=== PATIENT | male | born 1940 | race Caucasian/White ===

== ENCOUNTER 2016-09-23 17:07 | Inpatient (IN) | payer OTHER ==
[~2016-09-23] VITALS: Ht 170.1 cm; Wt 73.1 kg
--- NOTE | ~2016-09-23 | CON ---
[place], [place] REPORT OF CONSULTATION NAME: DARIEL GOOD UNIT #: [id number] ROOM: 405 DOCTOR: AUDRA PERALTA MD BIRTHDATE: [birth year] DOS: 09/24/2016 CARDIOLOGY CONSULTATION CONSULTING PHYSICIAN: Dr. Thong Schroeder. PRIMARY CARE PHYSICIAN: Dr. Moiz Dowd. REASON FOR CONSULT: Chest pain. CLINICAL HISTORY: The patient is a 76-year-old gentleman with a history of hypertension, diabetes, dyslipidemia, coronary artery disease, presented to the Emergency Room with chest pain. He developed this chest pain about 2-3 weeks ago, intermittent and gradually progressing, coming more frequently. He described this pain in the midsternal area in the upper anterior wall more towards the right side of the chest wall. It is dull and nonradiating pain, mild in severity, no associated nausea, diaphoresis, or dizziness. This pain lasted for several minutes and relieves on its own and easily comes with exertion and relieved with rest. No nausea, vomiting, diarrhea. No headache, no dizziness, no syncope. No orthopnea or PND. No palpitations. No hematuria or dysuria. He had 2 cardiac caths in the past, the last one was about 10 years ago, which showed "small blockages." REVIEW OF SYSTEMS: Review of the 8 systems negative except as mentioned above. PAST MEDICAL HISTORY: 1. Hypertension. 2. Diabetes type 2, on insulin. 3. "Coronary artery disease" details unknown. 4. Dyslipidemia. PAST SURGICAL HISTORY: 1. History of eye surgery. 2. Cholecystectomy. 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 SOCIAL HISTORY: The patient drinks occasional alcohol, does not use drugs. Quit smoking 20 years ago. FAMILY HISTORY: Father had coronary artery disease at the age of 74. Mother had coronary artery disease at the age of 52. OCCUPATION: The patient is currently retired. He used to work for an [employer]. ALLERGIES: The patient has no known drug allergies. HOME MEDICATIONS: Reviewed. PHYSICAL EXAMINATION: VITAL SIGNS: Blood pressure 140/74, pulse 76, respiratory rate of 16. [place], [place] REPORT OF CONSULTATION NAME: DARIEL GOOD UNIT #: [id number] ROOM: 405 DOCTOR: AUDRA PERALTA MDDATE: [birth year] GENERAL: Alert, comfortable, in no acute distress. HEENT: Pupils are round and equal. No jaundice. Left eye is a prosthetic eye. NECK: Supple, no distended neck veins, no carotid bruit. Tongue was moist and pharynx was clear. CHEST: Symmetrical, nontender. LUNGS: Few scattered rhonchi, no S3. ABDOMEN: Benign, nontender. Bowel sounds normal. No palpable masses. EXTREMITIES: Showed no edema. Distal pulses are palpable. SKIN: Warm and dry. NEUROLOGIC: The patient is alert, oriented. No focal neurologic deficit. RECTAL: Deferred. GENITOURINARY: Deferred. REVIEW OF THE DIAGNOSTIC TESTS: EKG shows sinus rhythm with lateral ST-T changes. Cardiac enzymes are unremarkable. CBC, chemistry reviewed. IMPRESSION: 1. Intermittent chest pains, possible angina. 2. Coronary artery disease, second cardiac cath was 10 years ago, details unknown "small blockages." 3. Hypertension. 4. Diabetes type 2. 5. Dyslipidemia. RECOMMENDATIONS: 1. Continue current medications. 2. Scheduled for exercise nuclear stress test due to his symptoms and multiple coronary disease risk factors. 3. Continue aspirin, beta blockers and statins. 4. Further recommendations based on his stress test and his symptoms. Thank you, Dr. Schroeder, for asking us to evaluate this patient and we will follow the case along with you. AUDRA PERALTA MD CM:CONSTR:REPORT OF CONSULTATION 2203 09/25/16 0434 interface
--- NOTE | ~2016-09-23 | ST ---
[place], [place] EXERCISE STRESS TEST REPORT [id number] UNIT #: [id number] ROOM: 405 DOCTOR: KATHRYN HINES,AUDRA BIRTHDATE: [birth year] DOS: 09/24/2016 EXERCISE NUCLEAR STRESS TEST REFERRING PHYSICIAN: Dr. Thong Schroeder and Dr. Moiz Dowd. REASON FOR TEST: Evaluation of chest pain. PHYSICAL EXAMINATION: NECK: Supple. LUNGS: Clear anteriorly. HEART: Regular rhythm. PROTOCOL: Mauricio protocol. DESCRIPTION: Total stress time 7 minutes and 30 seconds, maximum heart rate of 131, which is 92% of target heart rate, total METs 8.8 METs. Jaffe treadmill score +7. Peak blood pressure 150/74, adequate response. SYMPTOMS: The patient developed chest pain across the chest wall, which is resolved in the recovery phase without any intervention. His resting EKG showed sinus rhythm with nonspecific ST-T changes. Stress EKG showed [address] depression in lead V2-V5 as well as lead 1 and aVL and also frequent ventricular ectopy. His EKG changes partially resolved after 1 sublingual nitroglycerin tablet in the recovery phase. POST-STRESS COMPLICATIONS: None. CONCLUSION: Clinically, the patient developed chest pain. EKG abnormal with [address] depression in lead V2-V5 as well as lead 1 and aVL, partially resolved in the recovery phase after 1 sublingual nitroglycerin tablet. AUDRA PERALTA MD CM:STRESS:EXERCISE STRESS TEST REPORT [id number] AUDRA PERALTA MD
[~2016-09-23 17:07] MED LIST: AMLODIPINE10 MG; ASCRIPTIN ENTER81 MG PO; HYZAAR 50/12.5M1 TAB PO; IMDUR60 MG; SIMVASTATIN20 MG
[2016-09-23 17:42] VITALS: BP 149/79
[2016-09-23 17:44] LABS: BASO % 0.7 % (0.0-1.0); EOS # 0.2 10*3/uL (0.0-0.4); EOS % 3.8 % (1.0-4.0); HEMATOCRIT 39.6 % (42.0-52.0); HEMOGLOBIN 13.3 g/dl (14.0-18.0); LYMPH # 1.3 10*3/uL (1.3-4.4); LYMPH % 20.9 % (27.0-41.0); MEAN CELL VOLUME 84.3 fl (80.0-94.0); MEAN CORPUSCULAR HGB 28.3 pg (27.0-31.0); MEAN CORPUSCULAR HGB CONC 33.6 g/dl (33.0-37.0); MEAN PLATELET VOLUME 10.7 fl (9.6-12.3); MONO # 0.5 10*3/uL (0.1-1.0); MONO % 8.9 % (3.0-9.0); NEUT % 65.4 % (47.0-73.0); PLATELET COUNT AUTOMATED 191 10*3/uL (130-400); RED CELL DISTRI WIDTH 13.2 % (0-14.5); WHITE BLOOD COUNT 6.1 10*3/uL (4.8-10.8)
[2016-09-23 17:54] LABS: INTERNATIONAL NORM RATIO 0.9 (2.0-3.5)
[2016-09-23 18:03] LABS: ALBUMIN 3.7 gm/dl (3.1-4.5); ALKALINE PHOSPHATASE 85 U/L (45-117); BILIRUBIN, TOTAL 0.3 mg/dl (0.2-1.0); BUN 18 mg/dl (7-24); CARBON DIOXIDE 27 mmol/L (21-32); CHLORIDE 108 mmol/L (98-107); CKMB 2.6 ng/ml (0.5-3.6); CPK 97 U/L (39-308); EST GLOM FILT AFRICAN AMERICAN > 60 ml/min; GLUCOSE 117 mg/dL (65-99); LDH 208 U/L (87-241); MAGNESIUM 2.2 mg/dL (1.5-2.1); POTASSIUM 4.3 mmol/L (3.5-5.1); SGOT/AST 20 IU/L (3-35); SGPT/ALT 24 U/L (12-78); SODIUM 143 mmol/L (136-145); TOTAL PROTEIN 7.5 gm/dL (6.4-8.2)
[2016-09-23 18:05] LABS: TROPONIN I 0.149 ng/ml (<0.5)
[2016-09-23 20:00] VITALS: BP 142/76
[2016-09-23 21:10] VITALS: BP 160/72
[2016-09-23 21:23] VITALS: BP 160/72
[2016-09-24] VITALS: BP 151/76
[2016-09-24 01:11] LABS: CKMB 2.5 ng/ml (0.5-3.6); TROPONIN I 0.245 ng/ml (<0.5)
[2016-09-24 04:00] VITALS: BP 135/60
[2016-09-24 06:24] LABS: BASO # 0.1 10*3/uL (0.0-0.1); BASO % 0.8 % (0.0-1.0); EOS # 0.4 10*3/uL (0.0-0.4); EOS % 5.8 % (1.0-4.0); HEMATOCRIT 38.6 % (42.0-52.0); HEMOGLOBIN 12.6 g/dl (14.0-18.0); LYMPH # 1.6 10*3/uL (1.3-4.4); LYMPH % 25.2 % (27.0-41.0); MEAN CELL VOLUME 85.4 fl (80.0-94.0); MEAN CORPUSCULAR HGB 27.9 pg (27.0-31.0); MEAN CORPUSCULAR HGB CONC 32.6 g/dl (33.0-37.0); MEAN PLATELET VOLUME 10.9 fl (9.6-12.3); MONO # 0.6 10*3/uL (0.1-1.0); MONO % 9.1 % (3.0-9.0); NEUT # 3.7 10*3/uL (2.3-7.9); NEUT % 58.8 % (47.0-73.0); PLATELET COUNT AUTOMATED 180 10*3/uL (130-400); RED BLOOD COUNT 4.52 10*6/uL (4.50-5.90); RED CELL DISTRI WIDTH 13.3 % (0-14.5); WHITE BLOOD COUNT 6.2 10*3/uL (4.8-10.8)
[2016-09-24 06:36] LABS: CKMB 2.7 ng/ml (0.5-3.6); TROPONIN I 0.267 ng/ml (<0.5)
[2016-09-24 06:58] LABS: HEMOGLOBIN A1c 6.4 % (4.8-5.6)
[2016-09-24 07:02] LABS: ALBUMIN 3.5 gm/dl (3.1-4.5); ALKALINE PHOSPHATASE 80 U/L (45-117); BILIRUBIN, TOTAL 0.5 mg/dl (0.2-1.0); BUN 16 mg/dl (7-24); CARBON DIOXIDE 26 mmol/L (21-32); CHLORIDE 108 mmol/L (98-107); CHOLESTEROL 180 mg/dL (<200); EST GLOM FILT AFRICAN AMERICAN > 60 ml/min; GLUCOSE 101 mg/dL (65-99); HDL CHOLESTEROL 48 mg/dl (40-60); LDL CHOLESTEROL 99 mg/dL (9-159); MAGNESIUM 2.2 mg/dL (1.5-2.1); PHOSPHOROUS 2.5 mg/dL (2.5-4.9); POTASSIUM 3.7 mmol/L (3.5-5.1); SGOT/AST 16 IU/L (3-35); SGPT/ALT 22 U/L (12-78); SODIUM 144 mmol/L (136-145); TOTAL PROTEIN 6.8 gm/dL (6.4-8.2); TRIGLYCERIDES 166 mg/dl (<150); VLDL CHOLESTEROL 33 mg/dL (6-40)
[2016-09-24 07:20] LABS: PROTHROMBIN TIME 10.4 SECONDS (9.0-12.4)
[2016-09-24 07:36] LABS: VITAMIN D, 25-HYDROXY 38.2 ng/mL (30-100)
[2016-09-24 07:37] LABS: FOLIC ACID 21.01 ng/mL (>5.38)
[2016-09-24 08:00] VITALS: BP 180/90
[2016-09-24 15:04] LABS: TROPONIN I 0.285 ng/ml (<0.5)
[2016-09-24 16:00] VITALS: BP 120/58
[2016-09-24 20:00] VITALS: BP 118/69
[2016-09-25] VITALS: BP 125/71
[2016-09-25 08:00] VITALS: BP 122/62
== END 2016-09-25 08:24 | disposition other institution (70) | DRG 311 ==
LOC: ED 17:07 → 4E 18:26 → EDHOLD 18:26 → 4E 19:17
PROVIDERS: Hospitalist; Internal Medicine
DX: I24.9 Acute ischemic heart disease, unspecified (principal); E44.0 Moderate protein-calorie malnutrition; E11.65 Type 2 diabetes mellitus with hyperglycemia; E83.41 Hypermagnesemia; I10 Essential (primary) hypertension; E78.2 Mixed hyperlipidemia; D64.9 Anemia, unspecified; I25.10 Atherosclerotic heart disease of native coronary artery without angina pectoris; Z68.25 Body mass index [BMI] 25.0-25.9, adult; Z87.891 Personal history of nicotine dependence; Z79.4 Long term (current) use of insulin; Z90.49 Acquired absence of other specified parts of digestive tract; Z98.890 Other specified postprocedural states; Z82.49 Family history of ischemic heart disease and other diseases of the circulatory system

== ENCOUNTER → 2017-04-08 | Outpatient (CLI) | payer OTHER ==
[2017-04-08 10:53] LABS: BASO % 0.6 % (0.0-1.0); EOS # 0.3 10*3/uL (0.0-0.4); EOS % 3.9 % (1.0-4.0); HEMATOCRIT 41.1 % (42.0-52.0); HEMOGLOBIN 13.4 g/dl (14.0-18.0); LYMPH # 1.2 10*3/uL (1.3-4.4); LYMPH % 18.3 % (27.0-41.0); MEAN CELL VOLUME 86.7 fl (80.0-94.0); MEAN CORPUSCULAR HGB 28.3 pg (27.0-31.0); MEAN CORPUSCULAR HGB CONC 32.6 g/dl (33.0-37.0); MEAN PLATELET VOLUME 11.2 fl (9.6-12.3); MONO # 0.5 10*3/uL (0.1-1.0); MONO % 7.6 % (3.0-9.0); NEUT # 4.5 10*3/uL (2.3-7.9); NEUT % 69.3 % (47.0-73.0); PLATELET COUNT AUTOMATED 188 10*3/uL (130-400); RED BLOOD COUNT 4.74 10*6/uL (4.50-5.90); RED CELL DISTRI WIDTH 13.8 % (0-14.5); WHITE BLOOD COUNT 6.4 10*3/uL (4.8-10.8)
[2017-04-08 11:28] LABS: ALBUMIN 3.9 gm/dl (3.1-4.5); BUN 22 mg/dl (7-24); CARBON DIOXIDE 30 mmol/L (21-32); CHLORIDE 107 mmol/L (98-107); GLUCOSE 104 mg/dL (65-99); POTASSIUM 4.4 mmol/L (3.5-5.1); SODIUM 141 mmol/L (136-145)
[2017-04-08 11:37] LABS: ALKALINE PHOSPHATASE 85 U/L (45-117); BILIRUBIN, TOTAL 0.3 mg/dl (0.2-1.0); CHOLESTEROL 152 mg/dL (<200); EST GLOM FILT AFRICAN AMERICAN > 60 ml/min; FREE THYROXIN INDEX/T7 3.6 (1.4-4.7); HDL CHOLESTEROL 51 mg/dl (40-60); LDL CHOLESTEROL 72 mg/dL (9-159); SGOT/AST 15 IU/L (3-35); SGPT/ALT 18 U/L (12-78); T3 UPTAKE 31 % (31-39); THYROXINE (T4) TOTAL 11.7 ug/dl (4.5-12.1); TOTAL PROTEIN 7.9 gm/dL (6.4-8.2); TRIGLYCERIDES 145 mg/dl (<150); VLDL CHOLESTEROL 29 mg/dL (6-40)
== END | disposition home or self-care (01) ==
LOC: LAB 10:17
PROVIDERS: Internal Medicine
DX: Z12.5 Encounter for screening for malignant neoplasm of prostate (principal); I10 Essential (primary) hypertension; E78.2 Mixed hyperlipidemia; E03.9 Hypothyroidism, unspecified; I25.10 Atherosclerotic heart disease of native coronary artery without angina pectoris; N40.1 Benign prostatic hyperplasia with lower urinary tract symptoms

== ENCOUNTER → 2017-10-21 | Day surgery (SDC) | payer OTHER ==
[~2017-10-21] VITALS: Ht 167.6 cm; Wt 72.6 kg
[~2017-10-21] MED LIST changes: -SIMVASTATIN20 MG; +SIMVASTATIN20 MG PO
--- NOTE | ~2017-10-21 | O ---
[place], [place] OPERATIVE NOTE NAME: DARIEL GOOD [facility] #: [id number] UNIT #: [id number] ROOM: DOCTOR: [facility] BIRTHDATE: [birth year] DOS: 10/21/2017 GASTROENDOSCOPIC REPORT INDICATIONS: A 77-year-old patient who presented with chief complaint of history of colonic polyp in 2013, and he has had 10 polyps in the past. ALLERGIES: ATIYA INHIBITORS. FAMILY HISTORY: Noncontributory. PAST SURGICAL HISTORY: Cardiac stents, T and A, cholecystectomy. PAST MEDICAL HISTORY: Coronary artery disease, hypertension, and hyperlipidemia. SOCIAL HISTORY: Nonsmoker, rare alcohol consumer. PROCEDURE: Today's procedure part of investigation is colonoscopy plus biopsies plus small polypectomies. PREMEDICATION: Versed and Diprivan. SCOPE: Olympus folding colonoscope 10L video. REPORT: After putting the patient in left lateral position and application of lubricant to the scope, the scope was introduced. Thereafter, under direct visualization, advanced through the length of colon without difficulty. Two sessile polypoid lesion with piecemeal polypectomy from sigmoid colon was performed and the scope was negotiated all the way to the hepatic flexure and another sessile polyp; however, this is too close to the vicinity of carcinoma occurring at the hepatic flexure. Scope was negotiated to the cecum. Base of the cecum explored, appendiceal orifice identified, back to the mid ascending colon, which developing another flat polypoid lesion and another polypoid lesion again 2 cm proximal to that and carcinoma mass 2 cm proximal to that which is ending up to be hepatic flexure. I have a tattoo marked. This area the most proximal segment of the ascending colon that contains polyp and has to be removed surgically and last segment of it ascending colon, which is distal ascending colon to hepatic flexure area. The carcinoma mass border was tattoo marked. So the pathologic segment from the proximal and distal end of it has been tattoo marked. Biopsied photographed and the patient extubated, tolerated procedure well. IMPRESSION: Two polypoid lesion in mid ascending colon, status post biopsy. Hepatic flexure carcinoma status post biopsy, status post tattoo marking of the mid ascending colon proximal segment to the distal segment of the ascending colon to the hepatic flexure included to this segment. The pathologic concern of polyps and lesions otherwise 2 sessile polypoid lesion in sigmoid colon of no concern. [place], [place] OPERATIVE NOTE NAME: DARIEL GOOD UNIT #: [id number] ROOM: DOCTOR: PAO HINES,ADRIA BIRTHDATE: [birth year] PLAN AND DISCUSSION: This patient requires at least a right hemicolectomy to include hepatic flexure and proximal transverse colon and up to mid ascending colon. The area has been biopsied, tattoo marked, photographed, and workup in progress. PLAN: I am going to organize a CT scan of the abdomen making sure there is no metastasis. Thank you very much indeed. ADRIA CEDENO MD CM:OPRECORD:OPERATIVE NOTE [id number] CHRISTOPH CEDENO MD 10/21/17 1358 interface
[2017-10-21 07:20] VITALS: BP 157/72
[2017-10-21 08:40] VITALS: BP 106/61
[2017-10-21 08:55] VITALS: BP 126/68
[2017-10-21 09:10] VITALS: BP 134/68
== END ==
LOC: SDC 10-16 08:45
DX: Z09 Encounter for follow-up examination after completed treatment for conditions other than malignant neoplasm (principal); C18.2 Malignant neoplasm of ascending colon; Z86.010 Personal history of colon polyps; Z88.8 Allergy status to other drugs, medicaments and biological substances; Z95.5 Presence of coronary angioplasty implant and graft; Z90.49 Acquired absence of other specified parts of digestive tract; I25.10 Atherosclerotic heart disease of native coronary artery without angina pectoris; I10 Essential (primary) hypertension; E78.5 Hyperlipidemia, unspecified; K62.1 Rectal polyp; D12.3 Benign neoplasm of transverse colon; E78.00 Pure hypercholesterolemia, unspecified; Z82.49 Family history of ischemic heart disease and other diseases of the circulatory system; Z87.891 Personal history of nicotine dependence

== ENCOUNTER → 2017-10-27 | Outpatient (CLI) | payer OTHER ==
[2017-10-27 09:28] LABS: BUN 17 mg/dl (7-24); CREATININE 1.22 mg/dL (0.70-1.30)
== END | disposition home or self-care (01) ==
LOC: LAB 08:23
PROVIDERS: Internal Medicine Gastroenterology
DX: R10.9 Unspecified abdominal pain (principal)

== ENCOUNTER → 2017-10-28 | Outpatient (CLI) | payer OTHER | END | disposition home or self-care (01) | LOC: CT 02:25 | DX: R10.32 Left lower quadrant pain (principal); R10.31 Right lower quadrant pain ==

== ENCOUNTER → 2018-10-06 | Day surgery (SDC) | payer OTHER ==
[~2018-10-06] VITALS: Ht 167.6 cm; Wt 72.1 kg
[~2018-10-06] MED LIST changes: +AMLODIPINE BESYL5 MG PO; -AMLODIPINE10 MG; +CLOPIDOGREL75 MG PO; +VITAMIN D35000 UNIT PO
--- NOTE | ~2018-10-06 | O ---
[place], [place] OPERATIVE NOTE NAME: DARIEL GOOD UNIT #: [id number] ROOM: DOCTOR: ADRIA CEDENO MD BIRTHDATE: [birth year] DOS: 10/06/2018 GASTROENDOSCOPIC REPORT INDICATIONS: The patient is an 78-year-old who has presented with history of colonic carcinomatous polyp, status post right hemicolectomy. PAST MEDICAL HISTORY: Coronary artery disease, hypertension, cardiac stents, TIAs, cholecystectomy, and hypercholesterolemia. ALLERGIES: ATIYA INHIBITORS. SOCIAL HISTORY: Nonsmoker, rare alcohol consumer. PROCEDURE: Today's procedure part of investigation is colonoscopy. PREMEDICATION: Propofol. SCOPE: Olympus forward-viewing colonoscope 10L video. REPORT: After putting the patient in left lateral position and application of lubricant to the scope, the scope was introduced. Thereafter, under direct visualization, advanced through the length of colon without difficulty. Base of right colon was approached and anastomotic site was identified, suture lines was noticed, photographed. There is no acute deformities. There is no new polyps. Scope was gradually withdrawn from ascending, transverse, and descending colon. Rare diverticulosis experienced. The patient extubated, tolerated the procedure well. IMPRESSION: Rare diverticulosis, status post right hemicolectomy, history of colonic polyps with carcinoma. PLAN AND DISCUSSION: High fiber diet. The patient does not require another colonoscopy for next 5 years and at that time, he is going to be 83 years old. ACTIVITY: Ad winnie. FOLLOWUP: Routinely with you in the office. I thank you very much indeed for your kind referral. [place], [place] OPERATIVE NOTE NAME: DARIEL GOOD UNIT #: [id number] ROOM: DOCTOR: ADRIA CEDENO MD BIRTHDATE: [birth year] ADRIA CEDENO MD CM:OPRECORD:OPERATIVE NOTE 1003 1202 CHRISTOPH CEDENO MD 10/06/18 1203 interface
[2018-10-06 09:05] VITALS: BP 150/67
[2018-10-06 09:57] VITALS: BP 97/42
[2018-10-06 10:15] VITALS: BP 116/55
[2018-10-06 10:26] VITALS: BP 107/56
== END | disposition home or self-care (01) ==
LOC: SDC 07-12 13:15
DX: Z08 Encounter for follow-up examination after completed treatment for malignant neoplasm (principal); Z85.038 Personal history of other malignant neoplasm of large intestine; Z98.0 Intestinal bypass and anastomosis status; Z86.010 Personal history of colon polyps; K57.30 Diverticulosis of large intestine without perforation or abscess without bleeding; I10 Essential (primary) hypertension; I25.10 Atherosclerotic heart disease of native coronary artery without angina pectoris; E78.00 Pure hypercholesterolemia, unspecified; Z86.73 Personal history of transient ischemic attack (TIA), and cerebral infarction without residual deficits; Z90.49 Acquired absence of other specified parts of digestive tract; Z95.5 Presence of coronary angioplasty implant and graft; Z88.8 Allergy status to other drugs, medicaments and biological substances; Z98.890 Other specified postprocedural states; Z87.891 Personal history of nicotine dependence; Z91.041 Radiographic dye allergy status; Z79.899 Other long term (current) drug therapy; Z82.49 Family history of ischemic heart disease and other diseases of the circulatory system

== ENCOUNTER 2021-01-28 04:08 | Inpatient (IN) | payer OTHER ==
[2021-01-28] VITALS (7 sets, daily range): BP systolic 116–154; BP diastolic 56–71
[~2021-01-28] VITALS: Ht 170.1 cm; Wt 70.0 kg
[2021-01-28 04:21] LABS: BASO % 0.4 % (0.0-1.0); EOS # 0.4 10*3/uL (0.0-0.4); HEMATOCRIT 38.8 % (42.0-52.0); LYMPH # 1.7 10*3/uL (1.3-4.4); LYMPH % 21.4 % (27.0-41.0); MEAN CELL VOLUME 86.6 fl (80.0-94.0); MEAN CORPUSCULAR HGB 28.1 pg (27.0-31.0); MEAN CORPUSCULAR HGB CONC 32.5 g/dl (33.0-37.0); MEAN PLATELET VOLUME 10.9 fl (9.6-12.3); MONO # 0.7 10*3/uL (0.1-1.0); MONO % 8.7 % (3.0-9.0); NEUT % 64.2 % (47.0-73.0); PLATELET COUNT AUTOMATED 184 10*3/uL (130-400); RED BLOOD COUNT 4.48 10*6/uL (4.50-5.90); RED CELL DISTRI WIDTH 13.3 % (0-14.5); WHITE BLOOD COUNT 7.8 10*3/uL (4.8-10.8)
[2021-01-28 04:32] LABS: ACT PARTIAL THROMBO TIME 24.5 SECONDS (20.0-32.1)
[2021-01-28 04:39] LABS: ALBUMIN 3.4 gm/dl (3.1-4.5); ALKALINE PHOSPHATASE 75 U/L (45-117); BUN 28 mg/dl (7-24); CHLORIDE 108 mmol/L (98-107); POTASSIUM 3.4 mmol/L (3.5-5.1); SGOT/AST 12 IU/L (3-35); SGPT/ALT 18 U/L (12-78); SODIUM 140 mmol/L (136-145); TOTAL PROTEIN 7.1 gm/dL (6.4-8.2)
[2021-01-28 04:42] LABS: TROPONIN I < 0.015 ng/ml (<0.045)
[2021-01-28] MEDS ORDERED: LOSARTAN POTASS50 M1 PO (10:36)
[2021-01-28] MEDS ORDERED: KLOR-CON 88 ME1 PO (10:36)
[2021-01-28] MEDS ORDERED: CRESTOR20 M1 PO (10:37)
[2021-01-28] MEDS ORDERED: HYDR25T PO (10:37)
[2021-01-28] MEDS ORDERED: OYSTER SHELL 51 EACH PO (13:05)
[2021-01-28] MEDS ORDERED: NATURAL LUTEIN20 MG PO (13:06)
[2021-01-28] MEDS ORDERED: MULTIVITAMIN1 EACH PO (13:06)
[2021-01-28] MEDS ORDERED: ASPIRIN81 M1 PO (13:06)
[2021-01-29] VITALS: BP 124/55
[2021-01-29 05:54] LABS: BASO % 0.4 % (0.0-1.0); EOS % 0.4 % (1.0-4.0); HEMATOCRIT 39.7 % (42.0-52.0); LYMPH # 0.8 10*3/uL (1.3-4.4); LYMPH % 8.4 % (27.0-41.0); MEAN CELL VOLUME 87.4 fl (80.0-94.0); MONO # 0.4 10*3/uL (0.1-1.0); MONO % 4.7 % (3.0-9.0); NEUT # 7.9 10*3/uL (2.3-7.9); PLATELET COUNT AUTOMATED 181 10*3/uL (130-400); RED BLOOD COUNT 4.54 10*6/uL (4.50-5.90); RED CELL DISTRI WIDTH 13.4 % (0-14.5); WHITE BLOOD COUNT 9.2 10*3/uL (4.8-10.8)
[2021-01-29 06:33] LABS: ALBUMIN 3.7 gm/dl (3.1-4.5); ALKALINE PHOSPHATASE 77 U/L (45-117); BUN 23 mg/dl (7-24); CHLORIDE 107 mmol/L (98-107); CHOLESTEROL 133 mg/dL (<200); FREE T4 1.01 ng/dl (0.76-1.46); LDL CHOLESTEROL 53 mg/dL (9-159); POTASSIUM 4.2 mmol/L (3.5-5.1); SGOT/AST 85 IU/L (3-35); SGPT/ALT 26 U/L (12-78); SODIUM 139 mmol/L (136-145); TOTAL PROTEIN 7.6 gm/dL (6.4-8.2); TRIGLYCERIDES 123 mg/dl (<150)
[2021-01-29 07:11] LABS: VITAMIN D, 25-HYDROXY 80.7 ng/mL (30-100)
[2021-01-29 08:00] VITALS: BP 128/57
[2021-01-29 08:15] VITALS: BP 128/78
[2021-01-29] MEDS ORDERED: DIPHENHYDRAMINE25 M2 PO (08:29)
[2021-01-29] MEDS ORDERED: NITRO-BID1 GM T (08:29)
[2021-01-29] MEDS ORDERED: ENOXAPARIN80 MG/0.2 SC (08:29)
[2021-01-29 12:00] VITALS: BP 124/65
[2021-01-29 16:00] VITALS: BP 124/75
[2021-01-29 20:00] VITALS: BP 137/62
[2021-01-30] VITALS: BP 131/57
== END 2021-01-30 02:57 | disposition short-term general hospital (02) | DRG 281 ==
LOC: ED 04:08 → EDHOLD 10:03 → 5E 10:03
PROVIDERS: Internal Medicine; Registered Nurse; ADMIT Internal Medicine; ATTEND Internal Medicine
DX: I21.4 Non-ST elevation (NSTEMI) myocardial infarction (principal); E44.0 Moderate protein-calorie malnutrition; I25.110 Atherosclerotic heart disease of native coronary artery with unstable angina pectoris; I10 Essential (primary) hypertension; E78.2 Mixed hyperlipidemia; R73.9 Hyperglycemia, unspecified; D64.9 Anemia, unspecified; E87.6 Hypokalemia; Z88.8 Allergy status to other drugs, medicaments and biological substances; Z91.041 Radiographic dye allergy status; Z90.49 Acquired absence of other specified parts of digestive tract; Z87.891 Personal history of nicotine dependence; Z82.49 Family history of ischemic heart disease and other diseases of the circulatory system; Z79.899 Other long term (current) drug therapy; Z79.02 Long term (current) use of antithrombotics/antiplatelets; Z68.24 Body mass index [BMI] 24.0-24.9, adult

== ENCOUNTER → 2021-10-28 | Day surgery (SDC) | payer MEDICARE ==
[~2021-10-28] VITALS: Ht 167.6 cm; Wt 72.6 kg
[~2021-10-28] MED LIST changes: +ASPIRIN81 M1 PO; +CRESTOR20 M1 PO; +DIPHENHYDRAMINE25 M2 PO; +ENOXAPARIN80 MG/0.2 SC; +HYDR25T PO; +KLOR-CON 88 ME1 PO; +LOSARTAN POTASS50 M1 PO; +MULTIVITAMIN1 EACH PO; +NATURAL LUTEIN20 MG PO; +NITRO-BID1 GM T; +OYSTER SHELL 51 EACH PO
[2021-10-28 08:34] VITALS: BP 166/90
[2021-10-28 09:42] VITALS: BP 111/66
[2021-10-28 09:57] VITALS: BP 109/64
[2021-10-28 10:11] VITALS: BP 124/63
== END | disposition home or self-care (01) ==
LOC: SDC 10-24 10:15
PROVIDERS: ATTEND Surgery
DX: Z12.11 Encounter for screening for malignant neoplasm of colon (principal); D12.3 Benign neoplasm of transverse colon; K57.30 Diverticulosis of large intestine without perforation or abscess without bleeding; I11.0 Hypertensive heart disease with heart failure; I50.9 Heart failure, unspecified; I25.10 Atherosclerotic heart disease of native coronary artery without angina pectoris; E78.5 Hyperlipidemia, unspecified; Z95.5 Presence of coronary angioplasty implant and graft; Z20.822 Contact with and (suspected) exposure to COVID-19; Z79.899 Other long term (current) drug therapy

== ENCOUNTER → 2023-02-05 | Outpatient (CLI) | payer MEDICARE | END | disposition home or self-care (01) | LOC: CARD 01:27 | PROVIDERS: ATTEND Physician Assistant | DX: I08.0 Rheumatic disorders of both mitral and aortic valves (principal); R01.1 Cardiac murmur, unspecified ==